=== PATIENT | female | born 1990 | race American Indian/Alaskan Native ===

== ENCOUNTER 2019-10-02 05:59 | Emergency (ER) | payer SELFPAY ==
[2019-10-02 06:17] VITALS: BP 120/78
--- NOTE | 2019-10-02 06:51 | XRay Report ---
Right foot 3 views INDICATION: Right foot pain. IMPRESSION: No acute fracture or subluxation of the right foot is identified. Signer Name: Reggie Mccracken MD Signed: 10/02/2019 6:47 AM Workstation Name: [id number]
[2019-10-02] MEDS ORDERED: ACETAMINOPHEN 325 MG TAB PO ONE (07:49)
[2019-10-02] MEDS ORDERED: traMADol 50 MG TAB PO ONE (07:49)
--- NOTE | 2019-10-02 07:52 | Emergency Department Report ---
ED General Adult HPI - General Chief complaint: Extremity Injury, Lower Stated complaint: RT FOOT INJURY Time Seen by Provider: 10/02/19 07:24 Source: patient Mode of arrival: Wheelchair Limitations: Physical Limitation - History of Present Illness Initial comments: 29-year-old -[place] female patient presents with complaints of right foot pain x today. Patient states she was walking up a hill and rolled her foot. She rates her pain as a 10/10 in severity and states there is swelling. She denies any numbness or tingling and states she is still able to move the foot. Pain is worsened with ambulation and improved with ice. -: Sudden Quality: aching, constant - Related Data Previous Rx's Medication Instructions Recorded Last Taken Type Acetaminophen [Tylenol] 500 - 1,000 mg PO Q6HR PRN #30 10/02/19 Unknown Rx tablet traMADoL [Ultram 50 MG tab] 50 mg PO Q6HR PRN #6 tablet 10/02/19 Unknown Rx Allergies Allergy/AdvReac Type Severity Reaction Status Date / Time aspirin Allergy Unknown Verified 10/02/19 06:06 ibuprofen Allergy Unknown Verified 10/02/19 06:06 ED Review of Systems ROS: Stated complaint: RT FOOT INJURY Other details as noted in HPI Constitutional: denies: fever Respiratory: denies: cough Musculoskeletal: joint swelling, arthralgia Skin: denies: rash ED Past Medical Hx - Past Medical History Previous Medical History?: Yes Hx Asthma: Yes - Surgical History Past Surgical History?: No - Social History Smoking Status: Never Smoker Substance Use Type: Alcohol - Medications Home Medications: Home Medications Medication Instructions Recorded Confirmed Last Taken Type Acetaminophen [Tylenol] 500 - 1,000 mg PO Q6HR PRN #30 10/02/19 Unknown Rx tablet traMADoL [Ultram 50 MG tab] 50 mg PO Q6HR PRN #6 tablet 10/02/19 Unknown Rx ED Physical Exam - General Limitations: Physical Limitation General appearance: alert, in no apparent distress - Head Head exam: Present: atraumatic, normocephalic - Eye Eye exam: Present: normal appearance. Absent: scleral icterus - Neck Neck exam: Present: normal inspection - Respiratory Respiratory exam: Absent: respiratory distress - Cardiovascular Cardiovascular Exam: Present: regular rate - Expanded Lower Extremity Exam Right Ankle exam: Present: normal inspection, full ROM. Absent: tenderness, swelling, ecchymosis Foot/Toe exam: Present: full ROM, tenderness, swelling (Mild, overlying the cuboid bone). Absent: abrasion, laceration, ecchymosis, deformity, erythema, calcaneal tenderness Neuro vascular tendon exam: Absent: pulse deficit - Neurological Exam Neurological exam: Present: alert, oriented X3 - Psychiatric Psychiatric exam: Present: normal affect, normal mood - Skin Skin exam: Present: warm, dry, intact, normal color. Absent: rash ED Course Vital Signs 10/02/19 06:09 Temperature 98.6 F Pulse Rate 87 Respiratory 16 Rate Blood Pressure 120/78 O2 Sat by Pulse 99 Oximetry ED Medical Decision Making - Radiology Data Radiology results: report reviewed XRay Report Signed Patient: JENI BROWER MR#: [id number] 60 : 1990 Acct:[id number] Age/Sex: 29 / F ADM Date: 10/02/19 Loc: ED Attending Dr: Ordering Physician: ED MD JOVANNA Date of Service: 10/02/19 Procedure(s): XR foot 3+V RT Accession Number(s): [id number] cc: ED MD JOVANNA Fluoro Time In Minutes: Right foot 3 views INDICATION: Right foot pain. IMPRESSION: No acute fracture or subluxation of the right foot is identified - Medical Decision Making Patient here with right foot pain after a twist injury today. Foot x-ray is negative for fracture. There is mild swelling on exam moderate tenderness to palpation. Patient symptoms are consistent with a foot sprain. Patient placed in an Booker wrap and given crutches. Recommend follow-up with orthopedics. Discussed rice method and Tylenol as needed for pain given patient is allergic to NSAIDs. Patient is well-appearing, vitals are normal, and she is stable for discharge home. Strict return precautions were discussed in great detail with patient who verbalizes understanding. Critical care attestation.: If time is entered above; I have spent that time in minutes in the direct care of this critically ill patient, excluding procedure time. ED Disposition Clinical Impression: Right foot sprain Qualifiers: Encounter type: initial encounter Qualified Code(s): S93.601A - Unspecified sprain of right foot, initial encounter Disposition: TO HOME OR SELFCARE Is pt being admited?: No Condition: Stable Instructions: Foot Sprain (ED) Prescriptions: Acetaminophen [Tylenol] 500 - 1,000 mg PO Q6HR PRN #30 tablet PRN Reason: pain traMADoL [Ultram 50 MG tab] 50 mg PO Q6HR PRN #6 tablet PRN Reason: Pain , Severe (7-10) Referrals: NGHIA PALOMINO MD [Staff Physician] - 3-5 Days
== END 2019-10-02 08:30 | disposition home or self-care (01) ==
LOC: ED 05:59
DX: S93.601A Unspecified sprain of right foot, initial encounter (principal); J45.909 Unspecified asthma, uncomplicated; X58.XXXA Exposure to other specified factors, initial encounter; Y93.89 Activity, other specified; Y92.89 Other specified places as the place of occurrence of the external cause; Y99.8 Other external cause status